=== PATIENT | female | born 1955 | race Asian ===

== ENCOUNTER 2017-03-04 09:00 | Emergency (ER) | payer OTHER ==
[~2017-03-04] VITALS: Ht 157.5 cm; Wt 54.9 kg
[2017-03-04 09:05] VITALS: BP 154/84
--- NOTE | 2017-03-04 09:13 | NUR ---
Patient ambulated to bed 5 with family. RN evaluating patient at bedside.
[2017-03-04] MEDS ORDERED: IPRATROPIUM 0.02% 0.5 MG/2.5 ML NEBU INH ONE (09:20)
[2017-03-04] MEDS ORDERED: ALBUTEROL 0.083% 2.5 MG/3 ML NEBU INH ONE (09:20)
[2017-03-04] MEDS ORDERED: NACL 0.9% 1,000 ML IV SCH (09:21)
[2017-03-04] MEDS ORDERED: ONDANSETRON 4 MG/2 ML VIAL IVP ONE (09:25)
[2017-03-04] MEDS ORDERED: FAMOTIDINE 20 MG/2 ML VIAL IVP ONE (09:25)
[2017-03-04] MEDS ORDERED: NACL 0.9% 1,000 ML IV ONE (09:25)
--- NOTE | 2017-03-04 09:35 | NUR ---
player piano technician at bedside for CXR.
--- NOTE | 2017-03-04 09:45 | NUR ---
PATIENT BIB SON PRESENTS TO ED WITH C/O COUGH X3 DAYS;. DENIES N/V/D; SKIN IS PINK/WARM/DRY; AAOX4 WITH EVEN AND STEADY GAIT; LUNGS CLEAR BL; HR EVEN AND REGULAR; PT DENIES ANY FEVER, CP, OR SOB AT THIS TIME; PATIENT STATES PAIN OF 0/10 AT THIS TIME; VSS; PATIENT POSITIONED FOR COMFORT; HOB ELEVATED; BEDRAILS UP X2; BED DOWN. ER MD MADE AWARE OF PT STATUS.
--- NOTE | 2017-03-04 09:48 | NUR ---
Breathing treatment administered by respiratory therapist at bedside.
[2017-03-04 09:53] LABS: BASOPHILS # (AUTO) 0.2 K/uL (0.00-0.22); BASOPHILS % (AUTO) 4.3 % (0.0-2.0); EOSINOPHILS # (AUTO) 0.1 K/uL (0-0.4); EOSINOPHILS % (AUTO) 2.6 % (0.0-4.0); HEMATOCRIT 38.6 % (36-48); HEMOGLOBIN 12.5 g/dL (12.0-16.0); LYMPHOCYTES # (AUTO) 0.7 K/uL (2.5-16.5); LYMPHOCYTES % (AUTO) 17.9 % (20.5-51.1); MEAN CORPUSCULAR HEMOGLOBIN 32 pg (27-31); MEAN CORPUSCULAR HGB CONC 32 g/dL (33-37); MEAN CORPUSCULAR VOLUME 98 fL (80-94); MONOCYTES # (AUTO) 0.4 K/uL (0.8-1.0); MONOCYTES % (AUTO) 10.3 % (1.7-9.3); NEUTROPHILS # (AUTO) 2.7 K/uL (1.8-7.7); NEUTROPHILS % (AUTO) 64.9 % (42.2-75.2); PLATELET COUNT (AUTO) 76 K/uL (140-450); RED BLOOD CELL COUNT(AUTO) 3.92 MIL/uL (4.20-5.40); RED CELL DISTRIBUTION WIDTH 16.4 % (11.6-13.7); WHITE BLOOD COUNT (AUTO) 4.1 K/uL (4.8-10.8)
[2017-03-04 10:12] LABS: ALBUMIN 2.2 g/dL (3.4-5.0); ANION GAP 8.1 (8-16); CALCIUM 7.5 mg/dL (8.5-10.1); CREATININE 0.9 mg/dL (0.6-1.3); POTASSIUM 3.1 mmol/L (3.5-5.1); TOTAL BILIRUBIN 1.9 mg/dL (0.0-1.0); TOTAL PROTEIN, SERUM 5.7 g/dL (6.4-8.2)
[2017-03-04 10:14] LABS: LACTIC ACID 1.3 mmol/L (0.4-2.0)
[2017-03-04 10:19] LABS: AMYLASE 52 U/L (25-115); D-DIMER < 100 ng/ml (0-400); INR 2.7 (0.8-1.2); LIPASE 135 U/L (73-393); PARTIAL THROMBOPLASTIN TIME 43.2 secs (22-35.6)
--- NOTE | 2017-03-04 10:53 | NUR ---
PT AMBULATES TO THE RESTROOM FOR URINE SAMPLE
[2017-03-04 11:11] LABS: BILIRUBIN,URINE 2+ (NEGATIVE); BLOOD, URINE 1+ (NEGATIVE); COLOR,URINE ORANGE (YELLOW); LEUKOCYTE ESTERASE ,URINE NEGATIVE (NEGATIVE); NITRITE, URINE NEGATIVE (NEGATIVE); PROTEIN,URINE 2+ (NEGATIVE); UGLUCOSE NEGATIVE (NEGATIVE)
[2017-03-04 11:28] LABS: ICTOTEST POSITIVE (NEGATIVE)
[2017-03-04 11:29] LABS: BACTERIA,URINE OCCASSIONAL /HPF (None Seen); WBC,URINE 0-2 /HPF (0-5)
[2017-03-04 11:30] LABS: SQUAMOUS EPITHELIAL CELL,UR 0-3 (FEW) /LPF (0-3 (FEW))
[2017-03-04 11:32] LABS: APPEARANCE,URINE SLIGHTLY HAZY (CLEAR)
[2017-03-04] MEDS ORDERED: CARV12.5 PO (11:57)
[2017-03-04] MEDS ORDERED: FERR325E14 PO (11:57)
[2017-03-04] MEDS ORDERED: METF1000 PO (11:57)
[2017-03-04] MEDS ORDERED: WARF4TAB PO (11:57)
[2017-03-04] MEDS ORDERED: LEVO0.083 PO (11:57)
[2017-03-04] MEDS ORDERED: ATOR40TA PO (11:57)
[2017-03-04] MEDS ORDERED: POTA10TA10 PO (11:57)
[2017-03-04 12:11] VITALS: BP 112/68
--- NOTE | 2017-03-04 12:11 | NUR ---
Patient discharged with v/s stable. Written and verbal after care instructions given and explained. Patient alert, oriented and verbalized understanding of instructions. Ambulatory with steady gait. All questions addressed prior to discharge. ID band removed. Patient advised to follow up with PMD. Rx of ZITHROMAX, PREDNISONE, ALBUTEROL given. Patient educated on indication of medication including possible reaction and side effects. Opportunity to ask questions provided and answered.
== END 2017-03-04 12:11 | disposition home or self-care (01) ==
LOC: MED 09:00
DX: J40 Bronchitis, not specified as acute or chronic (principal); Z98.890 Other specified postprocedural states; Z79.01 Long term (current) use of anticoagulants; Z79.899 Other long term (current) drug therapy
CPT/HCPCS: 36415; 71010; 80053; 81001; 81025; 82150; 82553; 83605; 83690; 83880; 84484; 85025; 85379; 85610; 85730; 87040; 87086; 93005; 96361; 96374; 96375; 99285; J2405; J3490; J7030; J7613; J7644; Q0092

== ENCOUNTER 2017-03-07 20:04 | Inpatient (IN) | payer OTHER ==
[~2017-03-07] VITALS: Ht 162.6 cm; Wt 54.9 kg
[~2017-03-07 20:04] MED LIST: COREG12.5 MG PO; COUMADIN4 MG PO; FERROUS SULFAT325 MG PO; GLUCOPHAGE1000 MG PO; KLOR-CON 1010 ME1 PO; LIPITOR40 MG PO; SYNTHROID0.088 MG PO
[2017-03-07 20:07] VITALS: BP 146/89
--- NOTE | 2017-03-07 23:54 | NUR ---
PT TAKEN TO OF2
--- NOTE | 2017-03-07 23:55 | NUR ---
PATIENT PRESENTS TO ED WITH C/O SOB, NON-PRODUCTIVE COUGH, HARD TO SLEEP . DENIES N/V/D; SKIN IS PINK/WARM/DRY; AAOX4 WITH EVEN AND STEADY GAIT; WHEEZING LUNG SOUNDS BL; DRY COUGH PREENT, HR EVEN AND REGULAR; PT DENIES PAIN. VSS; PATIENT POSITIONED FOR COMFORT; HOB ELEVATED; BEDRAILS UP X2; BED DOWN. ER MD MADE AWARE OF PT STATUS.
--- NOTE | 2017-03-08 | NUR ---
Dr. Hernanedz evaluating patient
[2017-03-08] MEDS ORDERED: methylPREDNISolone SS 125 MG/2 ML VIAL IVP ONE (00:10)
[2017-03-08] MEDS ORDERED: ALBUTEROL SULFATE/IPRATROPIU 3 ML SOL IH ONE ×2 (00:10→01:55)
--- NOTE | 2017-03-08 00:15 | NUR ---
CXR AT BEDSIDE
--- NOTE | 2017-03-08 00:18 | NUR ---
PT MOVED TO BED 5
--- NOTE | 2017-03-08 00:55 | NUR ---
EKG AT [facility].
[2017-03-08] MEDS ORDERED: LEVOFLOXACIN 750 MG/D5W PREMIX 150 ML IV ONE (02:00)
--- NOTE | 2017-03-08 02:17 | NUR ---
Respiratory Therapist at bedside for respiratory intervention.
[2017-03-08] MEDS ORDERED: FUROSEMIDE 40 MG/4 ML VIAL IVP ONE (02:35)
[2017-03-08] MEDS ORDERED: VITAMIN D1000 IU PO (03:00)
[2017-03-08] MEDS ORDERED: MORPHINE SULFATE 2 MG/ML SYR IVP PRN (03:25)
[2017-03-08] MEDS ORDERED: MORPHINE SULFATE 4 MG/ML SYR IVP PRN (03:25)
[2017-03-08] MEDS ORDERED: ONDANSETRON 4 MG/2 ML VIAL IVP PRN (03:25)
[2017-03-08] MEDS ORDERED: AZITHROMYCIN 500 MG in DEXTROSE 5% 250 ML IV SCH (03:25)
[2017-03-08] MEDS ORDERED: ACETAMINOPHEN 325 MG TAB PO PRN (03:25)
--- NOTE | 2017-03-08 03:28 | NUR ---
Patient will be admitted to care of DR. ROBLES. Admited to TELEMETRY. Will go to room ICU 6. Belongings list completed.
--- NOTE | 2017-03-08 03:34 | NUR ---
REPORT GIVEN TO RADHA LEBRON.
--- NOTE | 2017-03-08 03:55 | NUR ---
PATIENT RECEIVED FROM ER AT THIS TIME, DX: ASHTMA EXACERBATION. PATIENT ACCOMPANIED BY HER DAUGHTER IN LAW PRANAV KAY. PATIENT IS AA0X4, CANTONESE SPEAKING, RN ARISTEO DURBIN AT BEDSIDE INTERPRETING. CARDIAC MIONITOR SHOWS ST-SR, ON ROOM AIR, NOTED WHEEZING BILATERAL LUNGS, SALINE LOCK ON LFA G@22 PATENT AND INTACT, NO SKIN PROBLEM NOTED, DENIES PAIN, NO RESPIRATORY DISTRESS.
[2017-03-08 04:00] VITALS: BP 148/92
[2017-03-08] MEDS ORDERED: AZITHROMYCIN 500 MG INJ VIAL IV ONE (04:51)
[2017-03-08] MEDS ORDERED: methylPREDNISolone SS 40 MG in WATER STERILE 1 ML IV SCH (06:00)
--- NOTE | 2017-03-08 06:18 | NUR ---
PATIENT RESTING COMFORTABLY, ATRIAL FIB ON THE MONITOR, DENIES PAIN, NO RESPIRATORY DISTRESS.
--- NOTE | 2017-03-08 07:25 | NUR ---
REPORT GIVEN TO GRAHAM/MST RN. PATIENT TRANSFERRED TO [facility], DENIES PAIN, NO SOB.
--- NOTE | 2017-03-08 07:26 | NUR ---
RECEIVED PT AWAKE ON A GURNEY AAOX4 NO S/S OF RESPIRATORY DISTRESS, CANTONESE SPEAKING, SKIN IS INTACT, WITH IV ACCESS ON LEFT FOREARM G22 PATENT AND INTACT. ORIENTED TO THE ROOM AND USE OF CALL LIGHT VIA [employer] TELEVISION PRODUCTION TECHNICIAN, PT IS AMBULATORY. DISCUSSED PLAN OF CARE, PT VERBALIZED UNDERSTANDING. CALL LIGHT WITHIN REACH, WILL CONTINUE TO MONITOR.
--- NOTE | 2017-03-08 07:52 | NUR ---
PATIENT HAS BEEN SCREENED AND CATEGORIZED MODERATE NUTRITION RISK. PATIENT WILL BE SEEN WITHIN 3-5 DAYS OF ADMISSION. 03/10/17-03/12/[address]
[2017-03-08 08:00] VITALS: BP 125/71
--- NOTE | 2017-03-08 08:05 | NUR ---
PER TRISH/ICU CHARGE PATIENT TRANSFERRED TO [facility]
[2017-03-08] MEDS: ALBUTEROL 0.083% 2.5 MG/3 ML NEBU IH SCH ×3 (08:25→18:56)
[2017-03-08] MEDS: IPRATROPIUM 0.02% 0.5 MG/2.5 ML NEBU IH SCH ×3 (08:25→18:56)
--- NOTE | 2017-03-08 08:59 | NUR ---
DR PERERA AT BEDSIDE, RAND BUTTING MACHINE OPERATOR VIA [employer]
--- NOTE | 2017-03-08 09:00 | NUR ---
PER PT SHE ONLY DRINKS WARM WATER
--- NOTE | 2017-03-08 09:53 | NUR ---
CM NOTE INITIAL REVIEW SENT TO [facility] FAX# [phone] PH# [id number] [phone]
--- NOTE | 2017-03-08 10:49 | NUR ---
PT ASLEEP AT THIS TIME, NO COMPLAINTS. ALL NEEDS ATTENDED. WILL CONTINUE TO MONITOR.
[2017-03-08] MEDS: methylPREDNISolone SS 40 MG/ML VIAL IVP SCH ×3 (11:31→23:38)
--- NOTE | 2017-03-08 11:31 | NUR ---
DUE MED GIVEN, EDUCATED PT VIA [facility].
[2017-03-08 12:03] VITALS: BP 126/78
--- NOTE | 2017-03-08 12:30 | NUR ---
WARFARIN HANDOUT GIVEN TO PT, EXPLAINED VIA [employer] [facility] CANTONESE FAMILY CONSUMER SCIENCE TEACHER.
[2017-03-08] MEDS: FERROUS SULFATE 325 MG TABEC PO SCH ×2 (12:57→17:12)
--- NOTE | 2017-03-08 13:05 | NUR ---
LUNCH SERVED, PT HAS GOOD APPETITE. NOTIFIED RE: NEED FOR WARFARIN VIA [employer] RACK PRODUCTION WORKER, PT VERBALIZED UNDERSTANDING
--- NOTE | 2017-03-08 13:30 | NUR ---
PER DR PERERA JUST TO HOLD WARFARIN. NO NEW ORDERS
--- NOTE | 2017-03-08 15:45 | NUR ---
PT ASLEEP RESTING COMFORTABLY ON BED, NO S/S OF DISTRESS. NEEDS ATTENDED AT THIS TIME. CALL LIGHT WITHIN REACH, WILL CONTINUE TO MONITOR
[2017-03-08 16:00] VITALS: BP 137/73
[2017-03-08] MEDS: metFORMIN 500 MG TAB PO SCH (17:12)
--- NOTE | 2017-03-08 17:22 | NUR ---
DUE MEDS GIVEN, MEDS EXPLAINED VIA [facility] SUPERVISOR CELLARS. PT VERBALIZED UNDERSTANDING
--- NOTE | 2017-03-08 18:25 | NUR ---
NOTIFIED DR ROBLES TRANSFORMATION CONSULTANT FOR DR PERERA REGARDING PT WATERY BMX5, STOOL SENT TO LAB FOR CDIFFX1.
--- NOTE | 2017-03-08 18:50 | NUR ---
PER DR ROBLES MONITOR BLOOD SUGAR AC HS WITH SLIDING SCALE.
[2017-03-08] MEDS ORDERED: DEXTROSE 50% 50 ML SYR IVP PRN (19:10)
--- NOTE | 2017-03-08 19:21 | NUR ---
ENDORSED PT TO TREASURY CONSULTANT NURSE IN STABLE CONDITION FOR CONTINUITY OF CARE
[2017-03-08 20:00] VITALS: BP 139/76
--- NOTE | 2017-03-08 20:20 | NUR ---
SEEN PT SITTING ON THE EDGE OF THE BED. PT SPEAKS CANTONESE ONLY. PT APPEARS NOT IN ANY DISTRESS OR DISCOMFORT. PT LAY IN BED. INITIAL ASSESSMENT DONE. VITAL SIGNS CHECKED. SAFETY ENSURED. CALL LIGHT W/IN REACH. BLOOD SUGAR CHECKED:323. WILL COVER W/ INSULIN PER SLIDING SCALE.
[2017-03-08] MEDS: BLOOD GLUCOSE MONITORING 1 DEV DEV FS SCH (20:46)
[2017-03-08] MEDS: AZITHROMYCIN 500 MG in DEXTROSE 5% 250 ML IV SCH (22:00)
--- NOTE | 2017-03-08 22:00 | NUR ---
DUE MEDS GIVEN ORDERED. TEACHINGS GIVEN AND PT APPEARS TO UNDERSTAND. NO DISTRESS OR DISCOMFORT OBSERVED. SAFETY ENSURED. PT REMAINS ON ISOLATION UNTIL C-DIFF TEST RESULT COMES BACK.
[2017-03-08] MEDS: ATORVASTATIN 20 MG TAB PO SCH (22:01)
[2017-03-08] MEDS: CARVEDILOL 12.5 MG TAB PO SCH (22:01)
--- NOTE | 2017-03-08 22:30 | NUR ---
PT CALLED COMPLAINING ABOUT HER IV SITE. DECREASED RATE OF ZITHROMAX IV. APPLIED ICE PACK. PT REFUSED TO HAVE ANOTHER IV. WILL CONTINUE TO MONITOR.
[2017-03-08] MEDS: INSULIN LISPRO SLIDING SCALE 100 UNITS/ML VIAL SUBQ PRN (23:38)
[2017-03-09] VITALS: BP 131/84
--- NOTE | 2017-03-09 00:20 | NUR ---
AWAKEN PT. VITAL SIGNS CHECKED. PT DENIES ANY DISCOMFORT. PT WENT TO THE BATHROOM.
[2017-03-09] MEDS: ALBUTEROL 0.083% 2.5 MG/3 ML NEBU IH SCH ×4 (00:46→19:27)
[2017-03-09] MEDS: IPRATROPIUM 0.02% 0.5 MG/2.5 ML NEBU IH SCH ×4 (00:47→19:27)
[2017-03-09 04:00] VITALS: BP 127/80
--- NOTE | 2017-03-09 04:20 | NUR ---
AWAKEN PT. VITAL SIGNS CHECKED AND WNL. PT DENIES ANY DISCOMFORT.
[2017-03-09] MEDS: methylPREDNISolone SS 40 MG/ML VIAL IVP SCH ×2 (06:36→21:24)
[2017-03-09] MEDS: LEVOTHYROXINE 0.088 MG TAB PO SCH (06:37)
--- NOTE | 2017-03-09 06:45 | NUR ---
BLOOD SUGAR CHECKED:160. WILL COVER W/ INSULIN PER SLIDING SCALE. PO MEDICATION GIVEN W/ TEACHINGS. PT KEPT COMFORTABLE.
[2017-03-09] MEDS: BLOOD GLUCOSE MONITORING 1 DEV DEV FS SCH ×4 (06:46→21:39)
--- NOTE | 2017-03-09 07:05 | NUR ---
REPORT GIVEN TO DAYSHIFT NURSE.
[2017-03-09] MEDS: INSULIN LISPRO SLIDING SCALE 100 UNITS/ML VIAL SUBQ PRN ×3 (07:11→17:19)
[2017-03-09 08:00] VITALS: BP 130/81
[2017-03-09] MEDS: metFORMIN 500 MG TAB PO SCH ×2 (08:07→17:15)
[2017-03-09] MEDS: CARVEDILOL 12.5 MG TAB PO SCH ×2 (08:08→21:25)
[2017-03-09] MEDS: FERROUS SULFATE 325 MG TABEC PO SCH ×3 (08:08→17:17)
--- NOTE | 2017-03-09 08:12 | NUR ---
DUE MEDS GIVEN, INTERPRETED BY RONY.
[2017-03-09] MEDS: PHYTONADIONE 10 MG/ML AMP SUBQ SCH ×2 (08:49→08:55)
--- NOTE | 2017-03-09 08:55 | NUR ---
VITAMIN K GIVEN SUBQ, EXPLAINED TO PT IMPORTANCE OF RECEIVING VIT K INTERPRETED BY LEA MCCULLOUGH NECK BAND MAKER SONAL #[id number]. PT VERBALIZED UNDERSTANDING. PT NOW ON STANDARD ISO, CDIFF RESULT NEGATIVE
[2017-03-09] MEDS ORDERED: WARFARIN 2 MG TAB PO SCH (09:00)
--- NOTE | 2017-03-09 09:21 | NUR ---
CM NOTE CONCURRENT REVIEW SENT TO [facility] FAX# [phone] PH# RAFIQ [phone]
--- NOTE | 2017-03-09 10:43 | NUR ---
PT ASLEEP WITH SCD ON, NO S/S OF DISTRESS. WILL CONTINUE TO MONITOR
[2017-03-09 12:00] VITALS: BP 131/83
--- NOTE | 2017-03-09 12:16 | NUR ---
DUE MEDS GIVEN, PT TOLERATED WELL, MED EDUCATION GIVEN INTERPRETED VIA [employer] [place] UTILITY SALES REPRESENTATIVE MI CASTELLANOS #[phone]
--- NOTE | 2017-03-09 13:30 | NUR ---
CM NOTE: I SPOKE TO PATIENT AT BEDSIDE WITH CANTONESE ULTRASOUND SPECIALIST ([employer]). PT STATED SHE LIVES IN THE ADDRESS WRITTEN ON THE FACE SHEET. WHEN ASKED ABOUT WHAT PHARMACY SHE USES AND IF SHE HAS A DIFFICULTY OBTAINING MEDICATIONS, THE CHANGE ADVISOR ASKED HER THREE TIMES BUT SHE DIDN'T UNDERSTAND. I TRIED TO CALL THE SON BUT HE DIDN'T RADIATION PHYSICIST THE PHONE. HAILEY STEVENSON RN, SON DOESN'T SPEAK GUAMANIAN AND DAUGHTER IN LAW DOES BUT SHE'S AT WORK EVERYDAY.
--- NOTE | 2017-03-09 14:17 | NUR ---
PT AWAKE LYING ON BED SPEAKING TO CASE MGT VIA [employer]. ALL NEEDS ATTENDED, WILL CONTINUE TO MONITOR.
[2017-03-09 16:00] VITALS: BP 138/90
[2017-03-09] MEDS: guaiFENesin DM 200/20 MG-10 ML 10 ML UDC PO PRN (17:15)
--- NOTE | 2017-03-09 17:20 | NUR ---
DUE MEDS GIVEN, PT TOLERATED WELL. MED TEACHING INTERPRETED VIA [employer] TUNNEL HEADING SUPERVISOR BEAN #[phone]. PT AMBULATING ALONG THE HALLWAYS WITH STEADY GAIT.
--- NOTE | 2017-03-09 18:46 | NUR ---
PT DAUGHTER IN LAW AT BEDSIDE, POLYSOMNOGRAPH TECH VIA [employer] BEAN # [phone], STATED THAT FOR ANY QUESTIONS PLEASE CALL THEM AT [phone] FROM 9AM-10AM ONLY AND USE [employer] THREE WAY CALL. PT STATED THAT SHE HAS STOMACH UPSET, EXPLAINED THAT PER MD, IT IS DUE TO [employer], INFORMED PT AND DAUGHTER IN LAW REGARDING PT AT RISK FOR BLEEDING, EDUCATION GIVEN, VERBALIZED UNDERSTANDING.
--- NOTE | 2017-03-09 19:24 | NUR ---
PER DR PERERA, CANCEL PT EVAL PT AMBULATING WELL. NOTIFIED DR PERERA RE: PT RIGHT LEG NON PITTING EDEMA 1+, NO NEW ORDERS JUST TO MONITOR.
--- NOTE | 2017-03-09 19:25 | NUR ---
ENDORSE PT TO VI LORENZO IN STABLE CONDITION FOR CONTINUITY OF CARE
--- NOTE | 2017-03-09 19:26 | NUR ---
RECEIVED REPORT FROM DAY RN FOR CONTINUITY OF CARE. PATIENT IS A&OX4, USED PHONE TO TRANSLATE, DISCUSSED PLAN OF CARE WITH PATIENT, ABLE TO VERBALIZE UNDERSTANDING. SHIFT ASSESSMENT DONE, VS TAKEN, HIGH BP NOTED WILL ADMINISTER MEDICATIONS PER MD ORDER. NO S/S OF RESPIRATORY DISTRESS NOTED ON ROOM AIR, INTERMITTENT COUGH. IV TO LT FA 22 GAUGE PATENT AND FLUSHED. SAFETY/ FALL PRECAUTIONS ENFORCED. CALL LIGHT WITHIN REACH. WILL CONTINUE TO MONITOR.
[2017-03-09 20:00] VITALS: BP 146/94
[2017-03-09] MEDS: AZITHROMYCIN 500 MG in DEXTROSE 5% 250 ML IV SCH (21:24)
[2017-03-09] MEDS: ATORVASTATIN 20 MG TAB PO SCH (21:25)
--- NOTE | 2017-03-09 21:25 | NUR ---
DUE MEDICATIONS ADMINISTERED, TOLERATED WELL, VERBALIZED UNDERSTANDING OF USE. BLOOD SUGAR TAKEN 152, HELD INSULIN PER PT STATES DECREASED APPETITE. TURNAROUND ENGINEER USED.
[2017-03-10] VITALS: BP 144/89
--- NOTE | 2017-03-10 00:07 | NUR ---
VS TAKEN, STABLE. PT AMBULATED TO RESTROOM, VOIDED. PT NOW RESTING IN BED. NO S/S OF DISTRESS NOTED. CALL LIGHT WITHIN REACH.
[2017-03-10] MEDS: IPRATROPIUM 0.02% 0.5 MG/2.5 ML NEBU IH SCH ×3 (01:27→13:12)
[2017-03-10] MEDS: ALBUTEROL 0.083% 2.5 MG/3 ML NEBU IH SCH ×3 (01:27→13:12)
--- NOTE | 2017-03-10 02:05 | NUR ---
PT IS SLEEPING. NO S/S OF DISTRESS OR DISCOMFORT NOTED. WILL CONTINUE TO MONITOR.
[2017-03-10 04:00] VITALS: BP 125/75
--- NOTE | 2017-03-10 04:02 | NUR ---
VS TAKEN, STABLE. PT IS NOW SLEEPING. NO S/S OF DISTRESS OR DISCOMFORT NOTED.
[2017-03-10] MEDS: LEVOTHYROXINE 0.088 MG TAB PO SCH (05:55)
[2017-03-10] MEDS: BLOOD GLUCOSE MONITORING 1 DEV DEV FS SCH ×3 (05:57→17:26)
[2017-03-10] MEDS: INSULIN LISPRO SLIDING SCALE 100 UNITS/ML VIAL SUBQ PRN ×3 (06:09→17:23)
--- NOTE | 2017-03-10 06:09 | NUR ---
GROUP SALES COORDINATOR USED FOR MEDICATION EDUCATION, VERBALIZED UNDERSTANDING. PROVIDED PATIENT WITH HOT WATER. GAVE INSULIN AND AM MEDS.
[2017-03-10] MEDS: guaiFENesin DM 200/20 MG-10 ML 10 ML UDC PO PRN (06:24)
--- NOTE | 2017-03-10 06:42 | NUR ---
PATIENT IS AMBULATING IN HALLWAY, NO S/S OF DISTRESS OR DISCOMFORT NOTED. WILL CONTINUE TO MONITOR.
--- NOTE | 2017-03-10 07:15 | NUR ---
ENDORSED PATIENT TO DAY RN FOR CONTINUITY OF CARE, PATIENT IS IN STABLE CONDITION.
--- NOTE | 2017-03-10 07:19 | NUR ---
RECEIVED REPORT FROM RECREATIONAL FACILITIES MOTEL MANAGER, PT AWAKE ALERT X4, AMBULATING IN HALLWAY WITH STEADY GAIT, RESP EVEN UNLABORED, PT RETURNED TO BED, CALL OLVERA WITHIN REACH, ALL SAFETY MEASURES MET, PT DENIES ANY IMMEDIATE NEEDS, WILL CONTINUE TO MONITOR.
[2017-03-10 08:00] VITALS: BP 117/73
[2017-03-10] MEDS: methylPREDNISolone SS 40 MG/ML VIAL IVP SCH (08:15)
[2017-03-10] MEDS: CARVEDILOL 12.5 MG TAB PO SCH (08:16)
[2017-03-10] MEDS: FERROUS SULFATE 325 MG TABEC PO SCH ×3 (08:16→17:25)
[2017-03-10] MEDS: metFORMIN 500 MG TAB PO SCH ×2 (08:16→17:25)
[2017-03-10] MEDS ORDERED: VIBRAMYCIN100 MG PO (08:54)
[2017-03-10] MEDS ORDERED: PREDNISONE20 MG PO (08:54)
[2017-03-10] MEDS ORDERED: PHENERGAN6.25 MG/5 PO (08:54)
[2017-03-10] MEDS ORDERED: IPRATROPIUM BROM3 M1 IH (08:54)
[2017-03-10] MEDS ORDERED: WARFARIN SODIUM3 M1 PO (08:55)
[2017-03-10] MEDS ORDERED: FUROSEMIDE 20 MG/2 ML VIAL IVP SCH (09:00)
--- NOTE | 2017-03-10 09:03 | NUR ---
CM NOTE CONCURRENT REVIEW SENT TO [facility] FAX# [phone] PH# RAFIQ [phone] APRIL [phone]
--- NOTE | 2017-03-10 09:40 | NUR ---
MEDICATED WITH LASIX PER ORDER, PT YAAKOV WELL, IV SITE CLEAR, DR PERERA AWARE OF PT/INR 16.9/1.8, PT DENIES ANY PAIN OR DISCOMFORT, RESP EVEN UNLABORED IN NAD, AWAITING NEB TREATMENT BEFORE DISCHARGE.
--- NOTE | 2017-03-10 10:07 | NUR ---
Social Service Note: I faxed inquiry to [employer] for nebulizer, phone # , fax # . I faxed inquiry to [employer] (contracted with [facility]) phone # .
[2017-03-10 10:19] VITALS: BP 117/73
[2017-03-10 12:00] VITALS: BP 123/73
--- NOTE | 2017-03-10 13:17 | NUR ---
Social Service Note: The following home health agencies were contact in order to locate a Cantonese speaking nurse: Per Yoon from [facility] phone # , they do not have any Cantonese speaking nurses, unable to accept patient. Per Jaylin from [facility] , they do not have any Cantonese speaking nurses, unable to accept patient. Per Cynthia from [facility] , they do not have any Cantonese speaking nurses, unable to accept patient. Per Miriam from [facility] , they do not have any Cantonese speaking nurses, unable to accept patient. Per Rayne from [facility] , they do not have any Cantonese speaking nurses, unable to accept patient. Per Griffin from [facility] , they do not have any Cantonese speaking nurses, unable to accept patient. Per Becca from [address] [place] [address] , they do not have any Cantonese speaking nurses, unable to accept patient. Per front desk receptionist at [facility] ,they do not have any Cantonese speaking nurses, unable to accept patient. Per Marilia from [facility] , they do not have any Cantonese speaking nurses, unable to accept patient. Per Susana from [facility] , they do not have any Cantonese speaking nurses, unable to accept patient. I spoke with patient via [employer] voice data communications engineer #[id number]. Per patient, she does not have any family members or friends who speak Senegalese and are able to translate for her. I explained to her I was unable to find a home health with Cantonese speaking nurses. She stated she lives at home with her son Edwige Morgan . Patient will be provided with education regarding medication management prior to discharge.
--- NOTE | 2017-03-10 13:47 | NUR ---
PT RESTING IN BED. NO S/S OF ACUTE DISTRESS. PT TOLERATED MEDS WELL. CALL LIGHT WITHIN REACH. SAFETY MEASURES ENSURED. WILL CONTINUE TO MONITOR.
--- NOTE | 2017-03-10 13:55 | NUR ---
CAMERON NOTE RECEIVED FAX FROM [employer], HARD COPY OF AUTHORIZATION FOR NEBULIZER AUTH# [id number]. FAXED AUTHORIZATION TO [employer] [facility] ATTN: JUANA FAX# [phone]. SPOKE WITH JUANA OF [facility] # [phone] AND HE SAID ETA FOR NEBULIZER TO BE DELIVERED BEDSIDE TODAY IS BETWEEN 3 AND 4PM. NURSE ALLAN AWARE EXT [phone]
--- NOTE | 2017-03-10 14:49 | NUR ---
CAMERON NOTE CALLED OLIVER OF [employer] PH# [phone] AND LEFT A VOICEMAIL. SPOKE WITH SHAINA OF [facility] PH# [phone] AND HE SAID FOR THE HOME HEALTH AUTH# [id number]. HODA GARLAND
--- NOTE | 2017-03-10 15:18 | NUR ---
Social Service Note: Per Pippa from [facility] , fax # , they have a touch up painter phone service and are capable of communicating with non Serbian speaking patients, including Cantonese speaking. Pippa stated they have a contract with [facility] and they serve the [facility]. I faxed inquiry. Per Pippa, they need authorization, stated she will contact me later. I provided her with Information Systems Administrator Eleanor from [facility] contact information .
[2017-03-10 16:00] VITALS: BP 121/69
--- NOTE | 2017-03-10 16:09 | NUR ---
PT INSTRUCT GIVEN ON HOW AND WHEN TO USE [employer] VIA PROPERTY OFFICER AND BLUE PHONE ID NUMBER OF PROPERTY OFFICER WRITTEN DOWN BY RN PT WAS ASKED IF SHE HAD ANY QUESTIONS QUESTIONS ANSWERED BY INTERRUPTER VIA BLUE PHONE PT LEFT WITH [employer] MED INSTRUCTIONS EXPLAINED WELL POSSIBLE SIDE EFFECTS OF MEDS PT ASKED IF SHE UNDERSTOOD PT NODDED YES
--- NOTE | 2017-03-10 16:14 | NUR ---
Social Service Note: Cesar Das from [facility] , they have obtained authorization from [facility]. Pippa stated they are able to accept patient and they will send a nurse to patient's home tomorrow, Charge Nurse Arcelia made aware.
--- NOTE | 2017-03-10 16:26 | NUR ---
VIA PHONE WIND ENERGY ENGINEER NUMBER [phone], NEBULIZER TEACHING DONE BY RT, DISCHARGE INSTRUCTION AND RX GIVEN AND EXPLAINED, ALL QUESTIONS ASKED AND ANSWERED, PT VERBALIZED FULL UNDERSTANDING, PT'S FAMILY TO COME GET HER AFTER 5PM.
[2017-03-10] MEDS ORDERED: WARFARIN 2 MG TAB PO SCH (17:00)
--- NOTE | 2017-03-10 18:10 | NUR ---
VIA PHONE MEDICAL RECORDS MANAGER [phone], EXPLAINED DC INSTRUCTION AND RX TO DAUGHTER IN LAW AT BEDSIDE, SHE VERBALIZED FULL UNDERSTANDING, ALL QUESTIONS ASKED AND ANSWERED, IV DC'D, CATH TIP INTACT, BLEEDING CONTROLLED, DC HOME NOW WITH DAUGHTER IN LAW.
== END 2017-03-10 18:20 | disposition home health service (06) | DRG 141 ==
LOC: MED 20:04 → MIC 03-08 03:28 → MTU 03-08 08:21
PROVIDERS: ADMIT Hospitalist; ATTEND Hospitalist
DX: J45.901 Unspecified asthma with (acute) exacerbation (principal); I15.2 Hypertension secondary to endocrine disorders; I48.91 Unspecified atrial fibrillation; I11.0 Hypertensive heart disease with heart failure; I50.9 Heart failure, unspecified; E11.9 Type 2 diabetes mellitus without complications; D63.8 Anemia in other chronic diseases classified elsewhere; E03.9 Hypothyroidism, unspecified; J20.9 Acute bronchitis, unspecified; Z79.01 Long term (current) use of anticoagulants; E78.5 Hyperlipidemia, unspecified; Z95.1 Presence of aortocoronary bypass graft; I25.10 Atherosclerotic heart disease of native coronary artery without angina pectoris